=== PATIENT | female | born 1960 | race African-American/Black ===

== ENCOUNTER 2018-04-07 21:38 | Emergency (ER) | payer MEDICAID, OTHER, SELFPAY ==
[~2018-04-07] VITALS: Ht 165.1 cm; Wt 83.9 kg
[~2018-04-07 21:38] MED LIST: TRAMADOL HCL50 MG ORAL
[2018-04-07 22:03] VITALS: BP 128/78
[2018-04-07] MEDS ORDERED: IBUPROFEN600 MG ORAL (22:39)
[2018-04-07] MEDS ORDERED: DOXYCYCLINE MO100 MG ORAL (22:39)
[2018-04-07] MEDS ORDERED: SILVADENE20 GM TP (22:39)
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
[2018-04-07 22:50] VITALS: BP 130/74
[2018-04-07 22:51] VITALS: BP 130/74
== END 2018-04-07 22:53 | disposition home or self-care (01) ==
LOC: EMR 22:01
DX: T21.24XA Burn of second degree of lower back, initial encounter (principal); T31.0 Burns involving less than 10% of body surface; X10.1XXA Contact with hot food, initial encounter; Y92.009 Unspecified place in unspecified non-institutional (private) residence as the place of occurrence of the external cause; L03.116 Cellulitis of left lower limb; L03.115 Cellulitis of right lower limb
CPT/HCPCS: 99283